=== PATIENT | male | born 1995 | race African-American/Black ===

== ENCOUNTER 2023-12-25 20:01 | Emergency (ER) | payer OTHER ==
[~2023-12-25] VITALS: Ht 175.3 cm; Wt 100.0 kg
[~2023-12-25 20:01] MED LIST: ASPIRIN 32325 MG/TAB PO; BACTRIM DS 8001 TAB PO; NO HOME MEDICATIONS; TYLENOL 500MG500 MG PO
[2023-12-25 20:17] VITALS: TEMP 98.2
[2023-12-25] MEDS ORDERED: Sulfamethoxazole/Trimethoprim 800-160 MG TAB PO ONE (22:15)
[2023-12-25] MEDS ORDERED: BACTRIM DS 8001 TAB PO (22:18)
[2023-12-25] MEDS ORDERED: HIBICLENS4% TP (22:19)
[2023-12-25 22:30] VITALS: BP 131/81; PULSE 85
== END 2023-12-25 22:30 | disposition home or self-care (01) ==
LOC: COL.ER 20:01
DX: L73.9 Follicular disorder, unspecified (principal); F17.210 Nicotine dependence, cigarettes, uncomplicated

== ENCOUNTER 2024-01-05 05:46 | Emergency (ER) | payer OTHER ==
[~2024-01-05] VITALS: Ht 175.3 cm; Wt 100.0 kg
[~2024-01-05 05:46] MED LIST changes: +HIBICLENS4% TP
[2024-01-05 05:47] VITALS: TEMP 99.6
[2024-01-05] MEDS ORDERED: DOXYCYCLINE 10100 MG PO (06:13)
[2024-01-05] MEDS ORDERED: Doxycycline Monohydrate 100 MG CAP PO ONE (06:15)
[2024-01-05] MEDS ORDERED: Home Doxycycline Mono 100 MG #2 CAP/PACK PO ONE (06:15)
[2024-01-05 06:30] VITALS: BP 126/81; PULSE 108
== END 2024-01-05 06:30 | disposition home or self-care (01) ==
LOC: COL.ER 05:46
DX: L02.212 Cutaneous abscess of back [any part, except buttock and flank] (principal)